=== PATIENT | female | born 1980 | race Caucasian/White ===

== ENCOUNTER 2017-05-29 19:04 | Emergency (ER) | payer OTHER ==
[~2017-05-29] VITALS: Ht 160 cm; Wt 95.3 kg
[~2017-05-29 19:04] MED LIST: AMOXICILLIN/POTASSIU; AMOXICILLIN500 M1 PO; BACTRIM DS TAB1 EACH PO; CYCLOBENZAPRINE5 MG PO; IMITREX 25 MG T25 M1 PO; IMITREX100 MG; LORTAB 5-500 T1 EAC1 PO; NAPROSYN500 MG PO; NOHOMEMEDICATIONS; NORCO 5-325 TA1 EACH PO; PREDNISONE50 MG PO; PROAIR HFA8.5 GM PO; TOPAMAX; TOPAMAX 100 MG100 MG PO; TUSSIONEX PENN473 ML PO; ULTRAM 50MG TAB50 MG PO; ZOFRAN4 MG PO
[2017-05-29] MEDS ORDERED: TAMIFLU75 MG PO (19:14)
[2017-05-29 19:52] LABS: INFLUENZA A ANTIGEN None Detected (None Detect); INFLUENZA B ANTIGEN None Detected (None Detect)
[2017-05-29] MEDS ORDERED: TESSALON PERLE100 MG PO (19:56)
[2017-05-29] MEDS ORDERED: PROAIR HFA8.5 GM INH (19:56)
[2017-05-29 21:39] VITALS: BP 105/58
== END 2017-05-29 21:40 | disposition home or self-care (01) ==
LOC: M.ERS 19:04
PROVIDERS: Nurse Practitioner Family
DX: J06.9 Acute upper respiratory infection, unspecified (principal); G43.909 Migraine, unspecified, not intractable, without status migrainosus; Z90.49 Acquired absence of other specified parts of digestive tract

== ENCOUNTER 2017-10-20 17:10 | Emergency (ER) | payer BC ==
[~2017-10-20] VITALS: Ht 157.5 cm; Wt 86.2 kg
[~2017-10-20 17:10] MED LIST changes: +PROAIR HFA8.5 GM INH; +TAMIFLU75 MG PO; +TESSALON PERLE100 MG PO
[2017-10-20] MEDS ORDERED: ZANAFLEX4 MG PO (17:39)
[2017-10-20] MEDS ORDERED: MEDROLDOSEPACK PO (17:39)
[2017-10-20] MEDS ORDERED: IBUPROFEN 800800 M1 PO (17:39)
[2017-10-20 18:06] VITALS: BP 113/66
== END 2017-10-20 18:08 | disposition home or self-care (01) ==
LOC: M.ERS 17:10
DX: M54.42 Lumbago with sciatica, left side (principal); G43.909 Migraine, unspecified, not intractable, without status migrainosus; Z90.49 Acquired absence of other specified parts of digestive tract